=== PATIENT | male | born 1975 | race Two or more races ===

== ENCOUNTER 2020-06-07 09:06 | Outpatient (CLI) | payer OTHER | END 2020-06-07 09:15 | disposition home or self-care (01) | LOC: SONOGRAMA 09:06 | PROVIDERS: ATTEND Internal Medicine | DX: R74.01 Elevation of levels of liver transaminase levels (principal) ==

== ENCOUNTER 2021-10-07 09:28 | Emergency (ER) | payer OTHER ==
[~2021-10-07] VITALS: Ht 162.6 cm; Wt 113.4 kg
[2021-10-07] MEDS ORDERED: TOPROL XL50 MG PO (10:00)
[2021-10-07] MEDS ORDERED: NORVASC5 MG PO (10:00)
[2021-10-07] MEDS ORDERED: FENOFIBRATE145 MG PO (10:01)
[2021-10-07] MEDS ORDERED: [UNRECOGNIZED DRUG - OTHER] PO (10:02)
[2021-10-07] MEDS ORDERED: PEPCID AC20 MG PO (13:50)
[2021-10-07] MEDS ORDERED: INTESTINEX680 M1 PO (13:50)
== END 2021-10-07 13:57 | disposition home or self-care (01) ==
LOC: ER 09:28
DX: R19.7 Diarrhea, unspecified (principal); I10 Essential (primary) hypertension